=== PATIENT | male | born 1960 | race Caucasian/White ===

== ENCOUNTER → 2019-07-26 | Day surgery (SDC) | payer MEDICARE, OTHER ==
[~2019-07-26] MED LIST: ANESTHESIA TRAY IN PYXIS 1 EA TRAY MC ONE; BUPIVACAINE 0.5 % PF 150 MG/30 ML VIAL ONE; BUPIVACAINE MPF W/EPI 0.25% 30 ML VIAL ONE; FAMOTIDINE/PF INJ 20 MG/2 ML VIAL IV ONE; FENTANYL PF 100MCG/2ML AMPUL ONE; FENTANYL PF 250MCG/5ML AMPUL ONE; MIDAZOLAM HCL 2 MG/2ML VIAL ONE; ROCURONIUM BROMIDE 50 MG/5 ML ONE
== END | disposition home or self-care (01) ==
LOC: DS 05:06
PROVIDERS: ATTEND Specialist
DX: S82.891A Other fracture of right lower leg, initial encounter for closed fracture (principal); J45.909 Unspecified asthma, uncomplicated; X58.XXXA Exposure to other specified factors, initial encounter; Y93.9 Activity, unspecified; Y92.9 Unspecified place or not applicable; Y99.9 Unspecified external cause status
CPT/HCPCS: 27814; A6402; C1713 ×5; J0690; J2250; J2405; J2704; J2710; J2765; J3010 ×2; J3490 ×4

== ENCOUNTER 2022-04-22 19:36 | Emergency (ER) | payer MEDICARE, OTHER ==
[~2022-04-22] VITALS: Ht 167.6 cm; Wt 74.8 kg
--- NOTE | 2022-04-22 20:18 | NUR ---
Note undone in EDM - 04/22/22 at 2022 by ROXANNE TO ER BED 8. [id number] FROM ARTIST'S REPRESENTATIVE MARIA FERNANDA C/O NEAR SYNCOPE EPISODE, PT STATES " FELT CONFUSED AND UNSTEADY. HIT HIS HEAD ON A PALM TREE". AAOX4. AMBULATORY WITH STEADY GAIT. ADMITS TO KO. REDNESS NOTED ON R SIDE OF FOREHEAD. BREATHING IS EVEN AND NONLABORED. CONNECTED TO MONITOR. AWAITING MD ABDALLA
--- NOTE | 2022-04-22 20:23 | NUR ---
URINE SAMPLE COLLECTED AND SENT TO LAB
--- NOTE | 2022-04-22 20:23 | NUR ---
LAB AT BEDSIDE
--- NOTE | 2022-04-22 20:23 | NUR ---
TO ER BED 8. 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 HIT HIS HEAD ON A PALM TREE". AAOX4. AMBULATORY WITH STEADY GAIT. ADMITS TO KO. REDNESS NOTED ON R SIDE OF FOREHEAD. BREATHING IS EVEN AND NONLABORED. CONNECTED TO MONITOR. AWAITING MD ABDALLA
[2022-04-22 20:39] LABS: BASOPHILS % (AUTO) 0.2 % (0.0-2.0); EOSINOPHILS % (AUTO) 2.2 % (0.0-6.0); HEMATOCRIT 43 % (39-51); HEMOGLOBIN 14.7 g/dL (13.5-17.5); LYMPHOCYTES # (AUTO) 1.3 K/uL (0.8-4.8); LYMPHOCYTES % (AUTO) 26.3 % (20.0-44.0); MEAN CORPUSCULAR HGB CONC 35 g/dl (31.0-36.0); MEAN CORPUSCULAR VOLUME 91 fL (80-96); MONOCYTES # (AUTO) 0.4 K/uL (0.1-1.30); MONOCYTES % (AUTO) 8.1 % (2.0-12.0); NEUTROPHILS % (AUTO) 63.2 % (43.0-81.0); PLATELET COUNT (AUTO) 182 K/uL (150-450); RED BLOOD CELL COUNT(AUTO) 4.69 MIL/uL (4.5-6.0); WHITE BLOOD COUNT (AUTO) 4.8 K/uL (4.3-11.0)
[2022-04-22 20:47] LABS: CALCIUM, SERUM 9.1 mg/dL (8.5-10.1); CARBON DIOXIDE 30 mmol/L (21-32); CHLORIDE 102 mmol/L (98-107); CREATININE 1.4 mg/dL (0.6-1.3); GLUCOSE 107 mg/dL (74-106); SODIUM SERUM 138 mmol/L (136-145); UREA NITROGEN, BLOOD 22 mg/dL (7-18)
[2022-04-22 22:47] VITALS: BP 123/76
--- NOTE | 2022-04-22 22:47 | NUR ---
Patient discharged to home in stable condition. Written and verbal after care instructions given. Patient verbalizes understanding of instruction.
== END 2022-04-22 22:47 | disposition home or self-care (01) ==
LOC: ER 19:46
DX: S00.01XA Abrasion of scalp, initial encounter (principal); S09.90XA Unspecified injury of head, initial encounter; R55 Syncope and collapse; F32.A Depression, unspecified; F41.9 Anxiety disorder, unspecified; Z88.6 Allergy status to analgesic agent; Z60.2 Problems related to living alone; W22.8XXA Striking against or struck by other objects, initial encounter; Y93.01 Activity, walking, marching and hiking; Y92.512 Supermarket, store or market as the place of occurrence of the external cause; Y99.8 Other external cause status
CPT/HCPCS: 36415; 70450-TC; 80048-TC; 84484-TC; 85025-TC

== ENCOUNTER 2023-11-08 17:36 | Emergency (ER) | payer MEDICARE, OTHER ==
[~2023-11-08] VITALS: Ht 170.2 cm; Wt 81.6 kg
[2023-11-08 20:30] VITALS: BP 111/62; TEMP 98.2; O2SAT 98
== END 2023-11-08 20:31 | disposition home or self-care (01) ==
LOC: ER 17:40
DX: S00.83XA Contusion of other part of head, initial encounter (principal); I48.91 Unspecified atrial fibrillation; F32.A Depression, unspecified; F41.9 Anxiety disorder, unspecified; Z88.6 Allergy status to analgesic agent; Z88.8 Allergy status to other drugs, medicaments and biological substances; Z60.2 Problems related to living alone; W22.8XXA Striking against or struck by other objects, initial encounter; Y93.89 Activity, other specified; Y92.89 Other specified places as the place of occurrence of the external cause; Y99.8 Other external cause status
CPT/HCPCS: 70450-TC